=== PATIENT | female | born 1995 | race Caucasian/White ===

== ENCOUNTER 2018-01-09 18:21 | Inpatient (IN) | payer BC, OTHER ==
[~2018-01-09] VITALS: Ht 152.4 cm; Wt 78.0 kg
[2018-01-09 18:23] VITALS: BP 130/70
[2018-01-09] MEDS ORDERED: NOVOLIN R100 UNIT/3 IJ (18:31)
[2018-01-09 19:17] LABS: BASOPHILS 0.2 % (0.0-2.0); HEMATOCRIT 39.3 % (37.0-47.0); HEMOGLOBIN 13.6 gm/dL (12.0-15.0); LYMPHOCYTES 3.7 % (24.0-44.0); MCHC 34.6 g/dL (28.0-37.0); MCV 89.6 fL (80.0-100.0); MONOCYTES 10.2 % (1.0-8.0); PLATELET COUNT 229 thou/uL (150-400); POLYS 85.9 % (36.0-66.0); RBC 4.39 mil/uL (4.20-5.00); RDW 12.8 % (10.5-14.5); WBC 18.6 thou/uL (4.0-11.0)
[2018-01-09 19:26] LABS: CALCIUM 8.8 mg/dL (8.5-10.1); POTASSIUM 3.7 mmol/L (3.5-5.1)
[2018-01-09 19:31] LABS: ALBUMIN 3.5 g/dL (3.4-5.0); TOTAL BILIRUBIN 0.5 mg/dL (<0.1-1.0); TOTAL PROTEIN 7.5 g/dL (6.4-8.2)
[2018-01-09 20:00] LABS: URINE BILIRUBIN NEGATIVE (Negative); URINE BLOOD TRACE (Negative); URINE CLARITY CLEAR; URINE COLOR YELLOW; URINE GLUCOSE-RANDOM* NEGATIVE (Negative); URINE KETONES NEGATIVE (Negative); URINE LEUKOCYTES-REFLEX NEGATIVE (Negative); URINE NITRITE-REFLEX NEGATIVE (Negative); URINE PROTEIN (DIPSTICK) NEGATIVE (Negative); URINE SPECIFIC GRAVITY <= 1.005 (1.005-1.035); URINE UROBILINOGEN 0.2 E.U./dl (0.2-1.0)
[2018-01-09 20:57] VITALS: BP 119/69
[2018-01-09 21:16] VITALS: BP 105/53
[2018-01-09 21:20] VITALS: BP 107/69
[2018-01-10 03:42] VITALS: BP 108/54
[2018-01-10 06:42] LABS: HEMATOCRIT 33.6 % (37.0-47.0); MCHC 34.2 g/dL (28.0-37.0); MCV 90.7 fL (80.0-100.0); RBC 3.7 mil/uL (4.20-5.00); RDW 12.9 % (10.5-14.5); WBC 13.6 thou/uL (4.0-11.0)
[2018-01-10 06:46] LABS: HEMOGLOBIN 11.5 gm/dL (12.0-15.0)
[2018-01-10 06:50] LABS: CALCIUM 7.6 mg/dL (8.5-10.1); CREATININE 0.9 mg/dL (0.6-1.0); POTASSIUM 3.8 mmol/L (3.5-5.1)
[2018-01-10 07:20] VITALS: BP 135/43
[2018-01-10 08:15] VITALS: BP 105/57
[2018-01-10 09:00] VITALS: BP 136/85
[2018-01-10 17:06] VITALS: BP 114/64
[2018-01-10 19:27] VITALS: BP 106/56
[2018-01-11 04:17] VITALS: BP 108/47
[2018-01-11 06:57] VITALS: BP 97/57
[2018-01-11 08:35] LABS: HEMATOCRIT 32.4 % (37.0-47.0); HEMOGLOBIN 11.1 gm/dL (12.0-15.0); MCH 30.8 pg (26.0-34.0); MCHC 34.1 g/dL (28.0-37.0); MCV 90.4 fL (80.0-100.0); RBC 3.59 mil/uL (4.20-5.00); RDW 12.9 % (10.5-14.5); WBC 8.7 thou/uL (4.0-11.0)
[2018-01-11 08:48] LABS: CALCIUM 7.8 mg/dL (8.5-10.1); CREATININE 0.7 mg/dL (0.6-1.0); POTASSIUM 3.9 mmol/L (3.5-5.1)
[2018-01-11] MEDS ORDERED: KEFLEX500 M1 PO (15:10)
[2018-01-11 15:13] VITALS: BP 97/57
== END 2018-01-11 15:32 | disposition home or self-care (01) | DRG 872 ==
LOC: ER 18:21 → 4E 19:59 → EROBS 19:59 → 4E 21:17
PROVIDERS: Hospitalist; Nurse Practitioner; Physician Assistant
DX: A41.9 Sepsis, unspecified organism (principal); L03.116 Cellulitis of left lower limb; E10.9 Type 1 diabetes mellitus without complications; Z79.899 Other long term (current) drug therapy
CPT/HCPCS: 10084